=== PATIENT | female | born 1995 | race African-American/Black ===

== ENCOUNTER 2016-07-26 11:34 | Emergency (ER) | payer OTHER ==
[~2016-07-26] VITALS: Ht 162.6 cm; Wt 64.8 kg
[2016-07-26 12:11] LABS: HEMATOCRIT 39.6 % (36.0-46.0); MCH 31.6 PG (29.0-34.0); MCHC 33.1 G/DL (30.0-36.0); MCV 95.7 FL (83-99); MEAN PLAT.VOLUME 9.6 uM^3 (9.5-12.4); PLATELET COUNT 212 K/uL (156-360); RBC DIS.WIDTH-CV 12.7 % (11.8-14.6); RBC DIS.WIDTH-SD 45.1 % (39-53); RED BLOOD COUNT 4.14 M/uL (3.80-5.20); WHITE BLOOD COUNT 3.7 K/uL (4.1-10.2)
[2016-07-26 12:25] LABS: CHLORIDE 108 mEq/L (99-109); POTASSIUM 3.6 mEq/L (3.7-5.4); SODIUM 139 mEq/L (136-147)
[2016-07-26 12:28] LABS: GLUCOSE 93 mg/dL (70-99)
[2016-07-26 12:29] LABS: ANION GAP 11 MEQ/L (2-14); TOTAL BILIRUBIN 0.5 mg/dL (0.0-1.0)
[2016-07-26 12:31] LABS: ALKALINE PHOSPHATASE 76 IU/L (3-129); GFR ESTIMATE (CALCULATED) > 59 mL/min/
[2016-07-26 12:32] LABS: UREA NITROGEN (BUN) 9 mg/dL (9-23)
[2016-07-26 12:41] LABS: QUANTITATIVE HCG < 4.0 MIU/ML
[2016-07-26 13:32] LABS: ADD MIUA? YES; BILIRUBIN NEGATIVE; BLOOD NEGATIVE; COLOR YELLOW ((YELLOW)); GLUCOSE (STRIP) NEGATIVE; KETONES NEGATIVE; LEUKOCYTES NEGATIVE; NITRITE NEGATIVE; PROTEIN (STRIP) NEGATIVE; UROBILINOGEN 0.2 MG/DL (0.2-1.0)
[2016-07-26 13:39] LABS: BACTERIA RARE /HPF; EPITHELIAL CELLS 1+ /HPF; MUCUS TRACE /LPF; RED BLOOD CELLS 0-5 /HPF (0-5); UCUL ADDED? NO; WHITE BLOOD CELLS 0-5 /HPF (0-5)
[2016-07-26] MEDS ORDERED: NAPROSYN500 MG PO (15:27)
[2016-07-26 15:37] VITALS: BP 119/71
[2016-07-28 13:54] LABS: CHLAMYDIA TRACHOMATIS NEGATIVE; NEISSERIA GONORRHOEAE NEGATIVE
== END 2016-07-26 15:46 | disposition home or self-care (01) ==
LOC: RME 11:34 → EME 11:34 → RME 15:46
PROVIDERS: Physician Assistant
DX: N83.201 Unspecified ovarian cyst, right side (principal); N89.8 Other specified noninflammatory disorders of vagina
CPT/HCPCS: 76856; 80053; 81003; 84702; 85027; 87210; 87491; 87591; 99281; 99285

== ENCOUNTER 2016-07-30 23:14 | Emergency (ER) | payer OTHER ==
[~2016-07-30] VITALS: Ht 162.6 cm; Wt 64.5 kg
[~2016-07-30 23:14] MED LIST: NAPROSYN500 MG PO
[2016-07-31 00:02] LABS: AMPHETAMINE NEGATIVE (500 ng/mL); BARBITURATES NEGATIVE (200 ng/mL); BENZODIAZEPINES NEGATIVE (150 ng/mL); COCAINE NEGATIVE (150 ng/mL); INTERNAL CONTROLS VALID? YES; METHADONE NEGATIVE (200 ng/mL); METHAMPHETAMINE NEGATIVE (500 ng/mL); OPIATES (MORPHINE) NEGATIVE (100 ng/mL); OXYCODONE NEGATIVE (100 ng/mL); PHENCYCLIDINE NEGATIVE (25 ng/mL); PROPOXYPHENE NEGATIVE (300 ng/mL); THC CANNABINOIDS NEGATIVE (50 ng/mL); TRICYCLIC ANTIDEPRESSANTS NEGATIVE (300 ng/mL)
[2016-07-31 00:23] LABS: CHLORIDE 107 mEq/L (99-109); POTASSIUM 3.9 mEq/L (3.7-5.4); SODIUM 139 mEq/L (136-147)
[2016-07-31 00:25] LABS: GLUCOSE 101 mg/dL (70-99)
[2016-07-31 00:26] LABS: MCH 31.9 PG (29.0-34.0); MCHC 33.3 G/DL (30.0-36.0); MCV 95.6 FL (83-99); MEAN PLAT.VOLUME 9.5 uM^3 (9.5-12.4); PLATELET COUNT 245 K/uL (156-360); RBC DIS.WIDTH-CV 12.9 % (11.8-14.6); RBC DIS.WIDTH-SD 45.6 % (39-53); RED BLOOD COUNT 4.08 M/uL (3.80-5.20); WHITE BLOOD COUNT 6.4 K/uL (4.1-10.2)
[2016-07-31 00:26] LABS: ANION GAP 9 MEQ/L (2-14)
[2016-07-31 00:28] LABS: SERUM ETHYL ALCOHOL < 10 mg/dL
[2016-07-31 00:29] LABS: GFR ESTIMATE (CALCULATED) > 59 mL/min/
[2016-07-31 00:30] LABS: UREA NITROGEN (BUN) 13 mg/dL (9-23)
[2016-07-31 01:15] VITALS: BP 128/78
== END 2016-07-31 01:16 | disposition home or self-care (01) ==
LOC: EME 23:14
DX: F32.9 Major depressive disorder, single episode, unspecified (principal); R45.851 Suicidal ideations; F43.23 Adjustment disorder with mixed anxiety and depressed mood
CPT/HCPCS: 80048; 85027; 90839; 99281; 99285; G0480

== ENCOUNTER 2016-08-04 00:11 | Emergency (ER) | payer OTHER ==
[~2016-08-04] VITALS: Ht 162.6 cm; Wt 66.5 kg
[2016-08-04 01:06] LABS: HEMATOCRIT 38.6 % (36.0-46.0); MCH 31.9 PG (29.0-34.0); MCHC 33.7 G/DL (30.0-36.0); MCV 94.8 FL (83-99); MEAN PLAT.VOLUME 9.5 uM^3 (9.5-12.4); PLATELET COUNT 292 K/uL (156-360); RBC DIS.WIDTH-CV 12.5 % (11.8-14.6); RBC DIS.WIDTH-SD 43.7 % (39-53); RED BLOOD COUNT 4.07 M/uL (3.80-5.20); WHITE BLOOD COUNT 6.3 K/uL (4.1-10.2)
[2016-08-04 01:14] LABS: CHLORIDE 107 mEq/L (99-109); POTASSIUM 3.8 mEq/L (3.7-5.4); SODIUM 141 mEq/L (136-147)
[2016-08-04 01:16] LABS: GLUCOSE 90 mg/dL (70-99)
[2016-08-04 01:17] LABS: ANION GAP 10 MEQ/L (2-14)
[2016-08-04 01:19] LABS: SERUM ETHYL ALCOHOL < 10 mg/dL
[2016-08-04 01:20] LABS: GFR ESTIMATE (CALCULATED) > 59 mL/min/
[2016-08-04 01:21] LABS: UREA NITROGEN (BUN) 13 mg/dL (9-23)
[2016-08-04 01:27] LABS: AMPHETAMINE NEGATIVE (500 ng/mL); BARBITURATES NEGATIVE (200 ng/mL); BENZODIAZEPINES NEGATIVE (150 ng/mL); COCAINE NEGATIVE (150 ng/mL); INTERNAL CONTROLS VALID? YES; METHADONE NEGATIVE (200 ng/mL); METHAMPHETAMINE NEGATIVE (500 ng/mL); OPIATES (MORPHINE) PRESUMPTIVE POSITIVE (100 ng/mL); OXYCODONE NEGATIVE (100 ng/mL); PHENCYCLIDINE NEGATIVE (25 ng/mL); PROPOXYPHENE NEGATIVE (300 ng/mL); THC CANNABINOIDS NEGATIVE (50 ng/mL); TRICYCLIC ANTIDEPRESSANTS NEGATIVE (300 ng/mL)
[2016-08-04 01:28] LABS: ADD MEDTOX COMMENT Y
[2016-08-04 01:32] LABS: QUANTITATIVE HCG < 4.0 MIU/ML
[2016-08-04 02:13] LABS: OPIATES QUANTITATIVE VALUE 0 NG/ML
[2016-08-04 04:56] VITALS: BP 117/60
== END 2016-08-04 04:57 | disposition home or self-care (01) ==
LOC: EME 00:11
DX: F32.9 Major depressive disorder, single episode, unspecified (principal)
CPT/HCPCS: 80048; 84702; 84999; 85027; 90839; 99281; 99285; G0480

== ENCOUNTER 2016-08-30 12:22 | Emergency (ER) | payer OTHER ==
[~2016-08-30] VITALS: Ht 170.2 cm; Wt 55.0 kg
[2016-08-30 13:39] LABS: EOSINOPHIL (%) 7.4 % (0-5); EOSINOPHIL COUNT 0.3 K/uL (0-0.3); HEMATOCRIT 37.5 % (36.0-46.0); INSTRUMENT ABS NEUTROPHIL CT 1.7 K/uL; LYMPHOCYTE COUNT 1.4 K/uL (1.0-2.8); MCH 31.9 PG (29.0-34.0); MCHC 33.1 G/DL (30.0-36.0); MCV 96.4 FL (83-99); MEAN PLAT.VOLUME 9.9 uM^3 (9.5-12.4); MONOCYTE (%) 7.1 % (3-12); MONOCYTE COUNT 0.3 K/uL (0-0.8); NEUTROPHIL (%) 46.5 % (45-76); NEUTROPHIL COUNT 1.7 K/uL (1.8-6.4); PLATELET COUNT 241 K/uL (156-360); RBC DIS.WIDTH-CV 12.4 % (11.8-14.6); RBC DIS.WIDTH-SD 43.5 % (39-53); RED BLOOD COUNT 3.89 M/uL (3.80-5.20)
[2016-08-30 13:49] LABS: ADD MIUA? NO; BILIRUBIN NEGATIVE; BLOOD NEGATIVE; COLOR YELLOW ((YELLOW)); GLUCOSE (STRIP) NEGATIVE; KETONES NEGATIVE; LEUKOCYTES NEGATIVE; NITRITE NEGATIVE; PROTEIN (STRIP) NEGATIVE; SPECIFIC GRAVITY 1.026 (1.000-1.030); UROBILINOGEN 0.2 MG/DL (0.2-1.0)
[2016-08-30 13:52] LABS: ANION GAP 9 MEQ/L (2-14); CHLORIDE 105 MEQ/L (99-109); POTASSIUM 3.8 MEQ/L (3.7-5.4); SAMPLE HEMOLYSIS CHECK 0; SAMPLE ICTERIC CHECK 0; SAMPLE LIPEMIA CHECK 0; SODIUM 138 MEQ/L (136-147)
[2016-08-30 14:00] LABS: AMPHETAMINE NEGATIVE (500 ng/mL); BARBITURATES NEGATIVE (200 ng/mL); BENZODIAZEPINES NEGATIVE (150 ng/mL); COCAINE NEGATIVE (150 ng/mL); INTERNAL CONTROLS VALID? YES; METHADONE NEGATIVE (200 ng/mL); METHAMPHETAMINE NEGATIVE (500 ng/mL); OPIATES (MORPHINE) NEGATIVE (100 ng/mL); OXYCODONE NEGATIVE (100 ng/mL); PHENCYCLIDINE NEGATIVE (25 ng/mL); PROPOXYPHENE NEGATIVE (300 ng/mL); THC CANNABINOIDS PRESUMPTIVE POSITIVE (50 ng/mL); TRICYCLIC ANTIDEPRESSANTS NEGATIVE (300 ng/mL)
[2016-08-30 14:05] LABS: WHITE BLOOD COUNT 3.7 K/uL (4.1-10.2)
[2016-08-30 14:23] LABS: QUANTITATIVE HCG < 4.0 MIU/ML
[2016-08-30 14:36] LABS: GFR ESTIMATE (CALCULATED) > 59 mL/min/; GLUCOSE 85 mg/dL (70-99); SERUM ETHYL ALCOHOL < 10 mg/dL; UREA NITROGEN (BUN) 13 mg/dL (9-23)
[2016-08-30 17:31] VITALS: BP 126/74
== END 2016-08-30 17:31 ==
LOC: EME 12:22
PROVIDERS: Emergency Medicine
DX: R45.851 Suicidal ideations (principal); F33.2 Major depressive disorder, recurrent severe without psychotic features
CPT/HCPCS: 80048; 81003; 84702; 84999; 85025; 90837; 99281; 99283; G0480

== ENCOUNTER 2016-10-04 10:56 | Inpatient (IN) | payer OTHER ==
[~2016-10-04] VITALS: Ht 165.1 cm; Wt 68.5 kg
[2016-10-04 12:05] LABS: BASOPHIL COUNT 0.1 K/uL (0-0.1); EOSINOPHIL (%) 4.4 % (0-5); EOSINOPHIL COUNT 0.2 K/uL (0-0.3); HEMATOCRIT 41.8 % (36.0-46.0); IMMATURE GRANULOCYTE (%) 0.4 % (0.0-0.7); LYMPHOCYTE COUNT 1.6 K/uL (1.0-2.8); MCH 31.8 PG (29.0-34.0); MCHC 33.7 G/DL (30.0-36.0); MCV 94.4 FL (83-99); MEAN PLAT.VOLUME 9.5 uM^3 (9.5-12.4); MONOCYTE (%) 7.9 % (3-12); MONOCYTE COUNT 0.4 K/uL (0-0.8); NEUTROPHIL (%) 56.1 % (45-76); PLATELET COUNT 257 K/uL (156-360); RBC DIS.WIDTH-CV 11.9 % (11.8-14.6); RBC DIS.WIDTH-SD 41.9 % (39-53); RED BLOOD COUNT 4.43 M/uL (3.80-5.20); WHITE BLOOD COUNT 5.4 K/uL (4.1-10.2)
[2016-10-04 12:16] LABS: CHLORIDE 107 mEq/L (99-109); POTASSIUM 5.2 mEq/L (3.7-5.4); SODIUM 138 mEq/L (136-147)
[2016-10-04 12:19] LABS: GLUCOSE 87 mg/dL (70-99)
[2016-10-04 12:20] LABS: ANION GAP 11 MEQ/L (2-14); TOTAL BILIRUBIN 0.4 mg/dL (0.0-1.0)
[2016-10-04 12:21] LABS: SERUM ETHYL ALCOHOL < 10 mg/dL
[2016-10-04 12:22] LABS: GFR ESTIMATE (CALCULATED) > 59 mL/min/
[2016-10-04 12:23] LABS: ALKALINE PHOSPHATASE 63 IU/L (3-129)
[2016-10-04 12:24] LABS: DIRECT BILIRUBIN 0.1 mg/dL (0.0-0.3); UREA NITROGEN (BUN) 9 mg/dL (9-23)
[2016-10-04 12:26] LABS: SALICYLATE < 5.0 MG/DL (15-30)
[2016-10-04 12:36] LABS: QUANTITATIVE HCG < 4.0 MIU/ML
[2016-10-05 00:31] VITALS: BP 107/66
[2016-10-05] MEDS ORDERED: BUSPIRONE HCL10 MG PO (01:36)
[2016-10-05] MEDS ORDERED: KLONOPIN0.5 M1 PO (01:39)
[2016-10-05] MEDS ORDERED: CYMBALTA30 MG PO (01:41)
[2016-10-05] MEDS ORDERED: VALACYCLOVIR500 MG PO (01:42)
[2016-10-05] MEDS ORDERED: LITHIUM CARBON300 M1 PO (01:44)
[2016-10-05 07:31] VITALS: BP 94/52
[2016-10-05 15:07] VITALS: BP 165/57
[2016-10-06 07:42] VITALS: BP 102/66
== END 2016-10-06 10:40 | disposition home or self-care (01) | DRG 883 ==
LOC: EME 10:56 → EDOF 22:08 → 1WEST 22:08 → EDOF 23:45 → 1WEST 23:55
PROVIDERS: Emergency Medicine
DX: F60.3 Borderline personality disorder (principal); R45.851 Suicidal ideations; F32.9 Major depressive disorder, single episode, unspecified; B00.9 Herpesviral infection, unspecified; F43.12 Post-traumatic stress disorder, chronic; R63.0 Anorexia; F12.10 Cannabis abuse, uncomplicated; F90.9 Attention-deficit hyperactivity disorder, unspecified type; R45.1 Restlessness and agitation; Z78.1 Physical restraint status; Z91.040 Latex allergy status; Z81.8 Family history of other mental and behavioral disorders
CPT/HCPCS: 80048; 80076; 80178; 81003; 84702; 85025; 90837; 93005; 99281; 99285; G0480; J1630; J2060

== ENCOUNTER 2016-10-21 15:56 | Emergency (ER) | payer OTHER ==
[~2016-10-21] VITALS: Ht 170.2 cm; Wt 64.0 kg
[~2016-10-21 15:56] MED LIST changes: +BUSPIRONE HCL10 MG PO; +CYMBALTA30 MG PO; +KLONOPIN0.5 M1 PO; +LITHIUM CARBON300 M1 PO; +VALACYCLOVIR500 MG PO
[2016-10-21 16:52] LABS: EOSINOPHIL (%) 2.1 % (0-5); EOSINOPHIL COUNT 0.2 K/uL (0-0.3); HEMATOCRIT 39.5 % (36.0-46.0); IMMATURE GRANULOCYTE (%) 0.3 % (0.0-0.7); INSTRUMENT ABS NEUTROPHIL CT 5.5 K/uL; LYMPHOCYTE COUNT 1.4 K/uL (1.0-2.8); MCH 31.9 PG (29.0-34.0); MCHC 34.2 G/DL (30.0-36.0); MCV 93.4 FL (83-99); MONOCYTE (%) 7.9 % (3-12); MONOCYTE COUNT 0.6 K/uL (0-0.8); NEUTROPHIL COUNT 5.5 K/uL (1.8-6.4); PLATELET COUNT 265 K/uL (156-360); RBC DIS.WIDTH-CV 12.3 % (11.8-14.6); RBC DIS.WIDTH-SD 42.7 % (39-53); RED BLOOD COUNT 4.23 M/uL (3.80-5.20); WHITE BLOOD COUNT 7.7 K/uL (4.1-10.2)
[2016-10-21 16:58] LABS: CHLORIDE 110 mEq/L (99-109); POTASSIUM 3.7 mEq/L (3.7-5.4); SODIUM 140 mEq/L (136-147)
[2016-10-21 17:00] LABS: GLUCOSE 94 mg/dL (70-99)
[2016-10-21 17:01] LABS: ANION GAP 10 MEQ/L (2-14)
[2016-10-21 17:02] LABS: TOTAL BILIRUBIN 0.3 mg/dL (0.0-1.0)
[2016-10-21 17:03] LABS: SERUM ETHYL ALCOHOL 143 mg/dL
[2016-10-21 17:04] LABS: GFR ESTIMATE (CALCULATED) > 59 mL/min/
[2016-10-21 17:05] LABS: ALKALINE PHOSPHATASE 62 IU/L (3-129)
[2016-10-21 17:06] LABS: UREA NITROGEN (BUN) 10 mg/dL (9-23)
[2016-10-21 17:07] LABS: SALICYLATE < 5.0 MG/DL (15-30)
[2016-10-21 17:14] LABS: QUANTITATIVE HCG < 4.0 MIU/ML
[2016-10-21 17:22] LABS: ADD MIUA? YES; BILIRUBIN NEGATIVE; BLOOD NEGATIVE; COLOR STRAW ((YELLOW)); GLUCOSE (STRIP) NEGATIVE; KETONES NEGATIVE; LEUKOCYTES TRACE; NITRITE NEGATIVE; PROTEIN (STRIP) NEGATIVE; SPECIFIC GRAVITY 1.008 (1.000-1.030); UROBILINOGEN 0.2 MG/DL (0.2-1.0)
[2016-10-21 17:33] LABS: AMPHETAMINE NEGATIVE (500 ng/mL); BARBITURATES NEGATIVE (200 ng/mL); BENZODIAZEPINES NEGATIVE (150 ng/mL); COCAINE NEGATIVE (150 ng/mL); INTERNAL CONTROLS VALID? YES; METHADONE NEGATIVE (200 ng/mL); METHAMPHETAMINE NEGATIVE (500 ng/mL); OPIATES (MORPHINE) NEGATIVE (100 ng/mL); OXYCODONE NEGATIVE (100 ng/mL); PHENCYCLIDINE NEGATIVE (25 ng/mL); PROPOXYPHENE NEGATIVE (300 ng/mL); THC CANNABINOIDS NEGATIVE (50 ng/mL); TRICYCLIC ANTIDEPRESSANTS NEGATIVE (300 ng/mL)
[2016-10-21 17:49] LABS: EPITHELIAL CELLS 1+ /HPF; RED BLOOD CELLS RARE /HPF (0-5); WHITE BLOOD CELLS 0-5 /HPF (0-5)
[2016-10-21 17:50] LABS: BACTERIA 1+ /HPF; CASTS NONE SEEN /LPF; CRYSTALS NONE SEEN; MUCUS NONE SEEN /LPF; UCUL ADDED? NO
[2016-10-21 23:38] VITALS: BP 113/75
== END 2016-10-21 23:54 | disposition home or self-care (01) ==
LOC: EME 15:56
PROVIDERS: Emergency Medicine
DX: F33.2 Major depressive disorder, recurrent severe without psychotic features (principal); S60.812A Abrasion of left wrist, initial encounter; X78.8XXA Intentional self-harm by other sharp object, initial encounter; F60.3 Borderline personality disorder; F10.129 Alcohol abuse with intoxication, unspecified; Y90.6 Blood alcohol level of 120-199 mg/100 ml; Z63.0 Problems in relationship with spouse or partner; R45.1 Restlessness and agitation
CPT/HCPCS: 80053; 81003; 84702; 85025; 90837; 99281; 99285; G0480; J1630; J2060

== ENCOUNTER 2016-11-07 20:11 | Emergency (ER) | payer OTHER ==
[~2016-11-07] VITALS: Ht 175.3 cm; Wt 70.0 kg
[2016-11-07] MEDS ORDERED: ABILIFY15 MG PO (21:49)
[2016-11-07 22:33] VITALS: BP 138/85
== END 2016-11-07 22:42 | disposition home or self-care (01) ==
LOC: EME 20:11
DX: F31.81 Bipolar II disorder (principal)
CPT/HCPCS: 90839; 99281; 99285

== ENCOUNTER 2017-06-02 20:39 | Emergency (ER) | payer OTHER ==
[~2017-06-02] VITALS: Ht 162.6 cm; Wt 74.7 kg
[~2017-06-02 20:39] MED LIST changes: +ABILIFY15 MG PO
[2017-06-02 20:46] VITALS: BP 126/86
[2017-06-02 21:09] LABS: HEMOGLOBIN 12.4 G/DL (11.9-15.5); MCH 32.8 PG (29.0-34.0); MCHC 35.4 G/DL (30.0-36.0); MCV 92.6 FL (83-99); PLATELET COUNT 296 K/uL (156-360); RBC DIS.WIDTH-CV 12.1 % (11.8-14.6); RBC DIS.WIDTH-SD 41.3 % (39-53); RED BLOOD COUNT 3.78 M/uL (3.80-5.20); WHITE BLOOD COUNT 6.7 K/uL (4.1-10.2)
[2017-06-02 21:20] LABS: CHLORIDE 109 mEq/L (99-109); POTASSIUM 3.9 mEq/L (3.7-5.4); SODIUM 137 mEq/L (136-147)
[2017-06-02 21:22] LABS: GLUCOSE 93 mg/dL (70-99)
[2017-06-02 21:25] LABS: SERUM ETHYL ALCOHOL < 10 mg/dL
[2017-06-02 21:26] LABS: CREATININE 0.7 mg/dL (0.6-1.3); GFR ESTIMATE (CALCULATED) > 59 mL/min/
[2017-06-02 21:26] LABS: AMPHETAMINE NEGATIVE (500 ng/mL); BARBITURATES NEGATIVE (200 ng/mL); BENZODIAZEPINES NEGATIVE (150 ng/mL); BUPRENORPHINE NEGATIVE (10 ng/mL); COCAINE NEGATIVE (150 ng/mL); METHADONE NEGATIVE (200 ng/mL); METHAMPHETAMINE NEGATIVE (500 ng/mL); OPIATES (MORPHINE) NEGATIVE (100 ng/mL); OXYCODONE NEGATIVE (100 ng/mL); PHENCYCLIDINE NEGATIVE (25 ng/mL); PROPOXYPHENE NEGATIVE (300 ng/mL); THC CANNABINOIDS PRESUMPTIVE POSITIVE (50 ng/mL); TRICYCLIC ANTIDEPRESSANTS NEGATIVE (300 ng/mL)
[2017-06-02 21:27] LABS: UREA NITROGEN (BUN) 8 mg/dL (9-23)
[2017-06-02 21:38] LABS: QUANTITATIVE HCG 512.4 MIU/ML
== END 2017-06-02 22:39 | disposition left against medical advice (07) ==
LOC: EME 20:39
DX: R45.851 Suicidal ideations (principal); Z53.21 Procedure and treatment not carried out due to patient leaving prior to being seen by health care provider
CPT/HCPCS: 80048; 84702; 84999; 85027; G0480

== ENCOUNTER 2017-07-28 08:16 | Emergency (ER) | payer OTHER ==
[~2017-07-28] VITALS: Ht 162.6 cm; Wt 74.2 kg
[2017-07-28 08:54] LABS: HEMATOCRIT 38.8 % (36.0-46.0); HEMOGLOBIN 13.6 G/DL (11.9-15.5); MCHC 35.1 G/DL (30.0-36.0); MCV 94.2 FL (83-99); PLATELET COUNT 272 K/uL (156-360); RBC DIS.WIDTH-CV 11.6 % (11.8-14.6); RBC DIS.WIDTH-SD 39.6 % (39-53); RED BLOOD COUNT 4.12 M/uL (3.80-5.20); WHITE BLOOD COUNT 5.6 K/uL (4.1-10.2)
[2017-07-28 09:02] LABS: APPEARANCE CLEAR ((CLEAR)); BILIRUBIN NEGATIVE; BLOOD NEGATIVE; COLOR YELLOW ((YELLOW)); GLUCOSE (STRIP) NEGATIVE; KETONES 80; LEUKOCYTES TRACE; NITRITE NEGATIVE; PROTEIN (STRIP) 100; SPECIFIC GRAVITY 1.031 (1.000-1.030); UROBILINOGEN 0.2 MG/DL (0.2-1.0)
[2017-07-28 09:02] LABS: ALBUMIN 4.8 g/dL (3.2-4.8); CHLORIDE 107 mEq/L (99-109); POTASSIUM 3.9 mEq/L (3.7-5.4); SODIUM 138 mEq/L (136-147)
[2017-07-28 09:05] LABS: GLUCOSE 92 mg/dL (70-99); TOTAL PROTEIN 8.2 g/dL (6.4-8.3)
[2017-07-28 09:07] LABS: TOTAL BILIRUBIN 0.9 mg/dL (0.0-1.0)
[2017-07-28 09:08] LABS: ALKALINE PHOSPHATASE 73 IU/L (3-129); CREATININE 0.8 mg/dL (0.6-1.3); GFR ESTIMATE (CALCULATED) > 59 mL/min/
[2017-07-28 09:09] LABS: UREA NITROGEN (BUN) 10 mg/dL (9-23)
[2017-07-28 09:10] LABS: AST (GOT) 17 IU/L (2-34)
[2017-07-28 09:11] LABS: ALT (GPT) 12 IU/L (3-49)
[2017-07-28 09:34] LABS: BACTERIA 1+ /HPF; EPITHELIAL CELLS 1+ /HPF; MUCUS 3+ /LPF; RED BLOOD CELLS RARE /HPF (0-5); UCUL ADDED? YES
[2017-07-28 09:35] LABS: QUANTITATIVE HCG 40663.8 MIU/ML
[2017-07-28] MEDS ORDERED: ZOFRAN ODT4 MG PO (10:21)
[2017-07-28] MEDS ORDERED: MACROBID100 MG PO (10:21)
[2017-07-28 11:25] VITALS: BP 124/79
== END 2017-07-28 11:26 | disposition home or self-care (01) ==
LOC: EME 08:16
DX: O21.9 Vomiting of pregnancy, unspecified (principal); O99.321 Drug use complicating pregnancy, first trimester; F12.10 Cannabis abuse, uncomplicated; O20.0 Threatened abortion; Z3A.01 Less than 8 weeks gestation of pregnancy; O99.341 Other mental disorders complicating pregnancy, first trimester; F31.9 Bipolar disorder, unspecified; F90.9 Attention-deficit hyperactivity disorder, unspecified type; Z91.040 Latex allergy status
CPT/HCPCS: 80053; 81003; 84702; 85027; 87086; 99281; 99284; J2405; J7030